=== PATIENT | male | born 1935 | race Caucasian/White ===

== ENCOUNTER 2017-09-19 10:14 | Inpatient (IN) | payer MEDICARE ==
[~2017-09-19] VITALS: Ht 182.9 cm; Wt 90.2 kg
[2017-09-19] MEDS ORDERED: IPRATROPIUM/ALBUTEROL SULFATE 3 ML SOLUTION IH ONE (10:43)
[2017-09-19] MEDS ORDERED: METHYLPREDNISOLONE SOD SUCC 40MG/ML 1ML ONE (10:45)
[2017-09-19 10:50] LABS: BASOPHILS % (AUTO) 0.6 % (0.0-5.0); HEMATOCRIT 46.7 % (42-54); MEAN CORPUSCULAR HEMOGLOBIN 31.8 pg (27.0-33.0); MEAN CORPUSCULAR HGB CONC 34.3 g/dL (32.0-36.0); MONOCYTES % (AUTO) 11.8 % (3.0-13.0); NEUTROPHILS % (AUTO) 68.6 % (40.0-77.0); PLATELET COUNT (AUTO) 144 K/uL (130-400); RED BLOOD CELL COUNT(AUTO) 5.02 MIL/uL (4.50-6.20); RED CELL DISTRIBUTION WIDTH 14.6 % (11.0-15.5); WHITE BLOOD COUNT (AUTO) 8.3 K/uL (4.8-10.8)
[2017-09-19 10:58] LABS: CREATININE 2.3 mg/dL (0.5-1.5)
[2017-09-19 11:02] LABS: MAGNESIUM 2.1 mg/dL (1.80-2.40)
[2017-09-19 11:14] LABS: ALBUMIN 3.8 g/dL (3.5-5.0); BILIRUBIN,TOTAL 0.7 mg/dL (0.2-1.0); CREATINE KINASE MB 3.8 ng/mL (0.5-3.6); TOTAL PROTEIN, SERUM 7.7 g/dL (6.0-8.3)
[2017-09-19 11:29] LABS: B-TYPE NATRIURETIC PEPTIDE 1900 pg/mL (0-100)
[2017-09-19 11:56] LABS: INR 2.35 (0.85-1.15); PARTIAL THROMBOPLASTIN TIME 39.7 SEC (26.3-35.5); PROTHROMBIN TIME 24.3 SEC (9.6-11.6)
[2017-09-19 14:02] LABS: CREATINE KINASE MB 2.9 ng/mL (0.5-3.6); CREATINE KINASE, TOTAL 192 U/L (21-232); MYOGLOBIN 279 ng/mL (10-92); TROPONIN I < 0.04 ng/mL (0.00-0.06)
[2017-09-19 15:12] VITALS: BP 155/62
[2017-09-19] MEDS ORDERED: TERB250T51 PO (15:43)
[2017-09-19] MEDS ORDERED: ASPI-1197 PO (15:43)
[2017-09-19] MEDS ORDERED: FURO40TA5 PO (15:43)
[2017-09-19] MEDS ORDERED: ISOS20TA7 PO (15:43)
[2017-09-19] MEDS ORDERED: WARF7.5T49 PO (15:43)
[2017-09-19] MEDS ORDERED: INSU100V12 SQ (15:43)
[2017-09-19] MEDS ORDERED: METO25TA6 PO (15:43)
[2017-09-19] MEDS ORDERED: SIMV40TA59 PO (15:43)
[2017-09-19] MEDS ORDERED: CHOL200074 PO (15:43)
[2017-09-19] MEDS ORDERED: FOLI0.8T22 PO (15:43)
[2017-09-19] MEDS: WARFARIN SODIUM 7.5 MG TAB PO SCH (16:00)
[2017-09-19] MEDS: FUROSEMIDE 20 MG TABLET PO SCH (17:29)
[2017-09-19] MEDS: METHYLPREDNISOLONE SOD SUCC 40MG/ML 1ML IVP SCH ×2 (17:29→22:25)
[2017-09-19 17:55] LABS: CREATINE KINASE, TOTAL 178 U/L (21-232); MYOGLOBIN 272 ng/mL (10-92); TROPONIN I < 0.04 ng/mL (0.00-0.06)
[2017-09-19 19:05] VITALS: BP 128/89
[2017-09-19] MEDS: IPRATROPIUM/ALBUTEROL SULFATE 3 ML SOLUTION IH PRN (19:40)
[2017-09-19] MEDS: ATORVASTATIN CALCIUM 20 MG TABLET PO SCH (22:19)
[2017-09-19] MEDS: METOPROLOL TARTRATE 25 MG TAB PO SCH (22:19)
[2017-09-19 23:20] VITALS: BP 135/58
[2017-09-20] MEDS: IPRATROPIUM/ALBUTEROL SULFATE 3 ML SOLUTION IH PRN ×3 (00:08→11:17)
[2017-09-20 03:30] VITALS: BP 158/83
[2017-09-20 03:59] LABS: INR 3.13 (0.85-1.15); PROTHROMBIN TIME 32.1 SEC (9.6-11.6)
[2017-09-20 04:00] LABS: CREATININE 2.3 mg/dL (0.5-1.5); MAGNESIUM 2.1 mg/dL (1.80-2.40); POTASSIUM 3.3 mmol/L (3.5-5.1)
[2017-09-20] MEDS: METHYLPREDNISOLONE SOD SUCC 40MG/ML 1ML IVP SCH ×4 (04:11→20:51)
[2017-09-20] MEDS: INSULIN HUMULIN R 100 UNIT/ML 3ML SQ SCH ×4 (06:20→20:54)
[2017-09-20 08:00] VITALS: BP 162/115
[2017-09-20] MEDS: FUROSEMIDE 20 MG TABLET PO SCH ×2 (09:11→17:36)
[2017-09-20] MEDS: METOPROLOL TARTRATE 25 MG TAB PO SCH ×2 (09:12→20:46)
[2017-09-20] MEDS: PANTOPRAZOLE SODIUM 40 MG TABLET.DR PO SCH (09:12)
[2017-09-20] MEDS: ISOSORBIDE MONO 30MG TAB SR PO SCH (09:12)
[2017-09-20] MEDS: ASPIRIN 81 MG EC TAB PO SCH (09:13)
[2017-09-20 12:00] VITALS: BP 161/85
[2017-09-20] MEDS: WARFARIN SODIUM 7.5 MG TAB PO SCH (14:42)
[2017-09-20 16:00] VITALS: BP 158/83
[2017-09-20 19:30] VITALS: BP 146/50
[2017-09-20] MEDS: ATORVASTATIN CALCIUM 20 MG TABLET PO SCH (20:46)
[2017-09-20 23:59] VITALS: BP 146/58
[2017-09-21] MEDS: IPRATROPIUM/ALBUTEROL SULFATE 3 ML SOLUTION IH PRN (03:46)
[2017-09-21] MEDS: METHYLPREDNISOLONE SOD SUCC 40MG/ML 1ML IVP SCH ×2 (03:56→08:14)
[2017-09-21 03:57] VITALS: BP 145/93
[2017-09-21 05:26] LABS: CREATININE 2.3 mg/dL (0.5-1.5); POTASSIUM 3.6 mmol/L (3.5-5.1)
[2017-09-21 05:35] LABS: INR 3.97 (0.85-1.15); PROTHROMBIN TIME 40.6 SEC (9.6-11.6)
[2017-09-21] MEDS: INSULIN HUMULIN R 100 UNIT/ML 3ML SQ SCH ×4 (06:36→21:12)
[2017-09-21] MEDS: IPRATROPIUM/ALBUTEROL SULFATE 3 ML SOLUTION IH SCH ×4 (06:41→23:29)
[2017-09-21 08:00] VITALS: BP 106/58
[2017-09-21] MEDS: METOPROLOL TARTRATE 25 MG TAB PO SCH ×2 (08:13→21:05)
[2017-09-21] MEDS: ASPIRIN 81 MG EC TAB PO SCH (08:13)
[2017-09-21] MEDS: FUROSEMIDE 20 MG TABLET PO SCH ×2 (08:13→17:29)
[2017-09-21] MEDS: PANTOPRAZOLE SODIUM 40 MG TABLET.DR PO SCH (08:13)
[2017-09-21] MEDS: ISOSORBIDE MONO 30MG TAB SR PO SCH (08:14)
[2017-09-21] MEDS ORDERED: MORPHINE SULFATE 2 MG/ML 1ML SYG IVP SCH (08:30)
[2017-09-21] MEDS ORDERED: NITROGLYCERIN 0.4 MG SL TAB SL ONE (08:31)
[2017-09-21] MEDS ORDERED: MORPHINE SULFATE 2 MG/ML 1ML SYG ONE (08:32)
[2017-09-21 09:44] LABS: CREATINE KINASE MB 4.4 ng/mL (0.5-3.6); CREATINE KINASE, TOTAL 125 U/L (21-232); MYOGLOBIN 320 ng/mL (10-92); TROPONIN I < 0.04 ng/mL (0.00-0.06)
[2017-09-21] MEDS ORDERED: LEVOFLOXACIN 500 MG/D5W 100 ML 100 ML ONE (11:30)
[2017-09-21 11:58] VITALS: BP 128/48
[2017-09-21 16:00] VITALS: BP 145/53
[2017-09-21] MEDS: WARFARIN SODIUM 7.5 MG TAB PO SCH (16:00)
[2017-09-21] MEDS ORDERED: BUDESONIDE 0.5 MG/2 ML INH IH ONE (18:26)
[2017-09-21] MEDS: BUDESONIDE 0.5 MG/2 ML INH IH SCH (18:54)
[2017-09-21 19:35] VITALS: BP 145/60
[2017-09-21] MEDS: ATORVASTATIN CALCIUM 20 MG TABLET PO SCH (21:05)
[2017-09-21 23:10] VITALS: BP 145/64
[2017-09-22 03:26] VITALS: BP 140/71
[2017-09-22] MEDS: IPRATROPIUM/ALBUTEROL SULFATE 3 ML SOLUTION IH SCH ×4 (04:47→23:28)
[2017-09-22] MEDS: BUDESONIDE 0.5 MG/2 ML INH IH SCH ×2 (04:48→20:05)
[2017-09-22] MEDS: INSULIN HUMULIN R 100 UNIT/ML 3ML SQ SCH ×4 (06:36→21:00)
[2017-09-22 06:39] LABS: CREATININE 2.4 mg/dL (0.5-1.5)
[2017-09-22 06:53] LABS: INR 4.38 (0.85-1.15); PROTHROMBIN TIME 44.7 SEC (9.6-11.6)
[2017-09-22 07:30] VITALS: BP 149/73
[2017-09-22] MEDS ORDERED: POTASSIUM CHLORIDE 20 MEQ ERTAB PO SCH (08:30)
[2017-09-22] MEDS: PANTOPRAZOLE SODIUM 40 MG TABLET.DR PO SCH (09:23)
[2017-09-22] MEDS: METOPROLOL TARTRATE 25 MG TAB PO SCH ×2 (09:24→21:00)
[2017-09-22] MEDS: ASPIRIN 81 MG EC TAB PO SCH (09:24)
[2017-09-22] MEDS: ISOSORBIDE MONO 30MG TAB SR PO SCH (09:24)
[2017-09-22] MEDS: FUROSEMIDE 20 MG TABLET PO SCH ×2 (09:25→16:29)
[2017-09-22] MEDS: WARFARIN SODIUM 7.5 MG TAB PO SCH (09:27)
[2017-09-22 11:00] VITALS: BP 96/49
[2017-09-22 16:00] VITALS: BP 131/51
[2017-09-22 20:00] VITALS: BP 154/98
[2017-09-22] MEDS: ATORVASTATIN CALCIUM 20 MG TABLET PO SCH (21:00)
[2017-09-22] MEDS ORDERED: ALPRAZOLAM 0.5 MG TABLET PO ONE (23:30)
[2017-09-22 23:39] VITALS: BP 138/73
[2017-09-23 04:21] VITALS: BP 113/63
[2017-09-23] MEDS: IPRATROPIUM/ALBUTEROL SULFATE 3 ML SOLUTION IH SCH ×2 (06:26→11:17)
[2017-09-23] MEDS: BUDESONIDE 0.5 MG/2 ML INH IH SCH (06:26)
[2017-09-23] MEDS: INSULIN HUMULIN R 100 UNIT/ML 3ML SQ SCH ×2 (07:30→12:40)
[2017-09-23 08:00] VITALS: BP 127/70
[2017-09-23 08:11] LABS: INR 2.62 (0.85-1.15)
[2017-09-23] MEDS ORDERED: LEVOFLOXACIN 500 MG/D5W 100 ML 100 ML IV SCH (09:00)
[2017-09-23] MEDS: ISOSORBIDE MONO 30MG TAB SR PO SCH (10:20)
[2017-09-23] MEDS: METOPROLOL TARTRATE 25 MG TAB PO SCH (10:20)
[2017-09-23] MEDS: PANTOPRAZOLE SODIUM 40 MG TABLET.DR PO SCH (10:21)
[2017-09-23] MEDS: ASPIRIN 81 MG EC TAB PO SCH (10:21)
[2017-09-23] MEDS: FUROSEMIDE 20 MG TABLET PO SCH (10:21)
[2017-09-23 11:00] VITALS: BP 128/67
== END 2017-09-23 16:50 | disposition home or self-care (01) | DRG 189 ==
LOC: EDH 10:14 → EDHIP 11:27 → 3AH 14:21
PROVIDERS: ADMIT Internal Medicine; ATTEND Internal Medicine
DX: J96.21 Acute and chronic respiratory failure with hypoxia (principal); E11.22 Type 2 diabetes mellitus with diabetic chronic kidney disease; E11.51 Type 2 diabetes mellitus with diabetic peripheral angiopathy without gangrene; J44.1 Chronic obstructive pulmonary disease with (acute) exacerbation; I13.0 Hypertensive heart and chronic kidney disease with heart failure and stage 1 through stage 4 chronic kidney disease, or unspecified chronic kidney disease; I50.42 Chronic combined systolic (congestive) and diastolic (congestive) heart failure; J84.10 Pulmonary fibrosis, unspecified; I25.5 Ischemic cardiomyopathy; I25.10 Atherosclerotic heart disease of native coronary artery without angina pectoris; E11.65 Type 2 diabetes mellitus with hyperglycemia; I49.3 Ventricular premature depolarization; N18.9 Chronic kidney disease, unspecified; N40.0 Benign prostatic hyperplasia without lower urinary tract symptoms; Z79.01 Long term (current) use of anticoagulants; Z80.9 Family history of malignant neoplasm, unspecified; I25.2 Old myocardial infarction; Z82.3 Family history of stroke; Z82.49 Family history of ischemic heart disease and other diseases of the circulatory system; Z83.3 Family history of diabetes mellitus; Z85.828 Personal history of other malignant neoplasm of skin; Z86.79 Personal history of other diseases of the circulatory system; Z87.891 Personal history of nicotine dependence; Z88.1 Allergy status to other antibiotic agents; Z28.21 Immunization not carried out because of patient refusal
CPT/HCPCS: 36415; 71045; 80048; 80053; 82550; 82553; 82948; 83605; 83735; 83874; 83880; 84484; 85025; 85610; 85730; 87804; 93005; 93306; 94640; 94664; J1815; J1956; J2920

== ENCOUNTER 2017-11-11 15:31 | Inpatient (IN) | payer MEDICARE ==
[~2017-11-11] VITALS: Ht 193 cm; Wt 91.5 kg
[~2017-11-11 15:31] MED LIST: ASPI-1197 PO; CHOL200074 PO; FOLI0.8T22 PO; FURO40TA5 PO; INSU100V12 SQ; ISOS20TA7 PO; METO25TA6 PO; SIMV40TA59 PO; TERB250T51 PO; WARF7.5T49 PO
[2017-11-11] MEDS ORDERED: ACETAMINOPHEN 325 MG TAB PO PRN (16:15)
[2017-11-11 16:27] VITALS: BP 150/80
[2017-11-11] MEDS ORDERED: SODIUM CHLORIDE 0.9% 10 ML VIAL IVP PRN (16:30)
[2017-11-11] MEDS ORDERED: CLONIDINE HCL 0.1 MG TABLET PO PRN (16:30)
[2017-11-11 16:50] LABS: HEMATOCRIT 39.7 % (42-54); MEAN CORPUSCULAR HEMOGLOBIN 32.3 pg (27.0-33.0); MEAN CORPUSCULAR HGB CONC 34.1 g/dL (32.0-36.0); MEAN CORPUSCULAR VOLUME 94.6 fL (79-99); PLATELET COUNT (AUTO) 214 K/uL (130-400); RED CELL DISTRIBUTION WIDTH 16.9 % (11.0-15.5); WHITE BLOOD COUNT (AUTO) 8.6 K/uL (4.8-10.8)
[2017-11-11 17:08] LABS: ALBUMIN 3.7 g/dL (3.5-5.0); BILIRUBIN,TOTAL 0.4 mg/dL (0.2-1.0); POTASSIUM 3.6 mmol/L (3.5-5.1); THYROID STIMULATING HORMONE 1.98 uIU/mL (0.36-3.74); TOTAL PROTEIN, SERUM 7.5 g/dL (6.0-8.3)
[2017-11-11] MEDS ORDERED: DEXTROSE 50%-WATER 50 ML DISP.SYRIN IV PRN (18:15)
[2017-11-11] MEDS ORDERED: GLUCAGON 1MG KIT 1 MG ML IM PRN (18:15)
[2017-11-11 18:55] LABS: INR 3.01 (0.85-1.15); PARTIAL THROMBOPLASTIN TIME 38.5 SEC (26.3-35.5); PROTHROMBIN TIME 30.9 SEC (9.6-11.6)
[2017-11-11] MEDS: SODIUM CHLORIDE 0.9% 1000ML 1,000 ML IV SCH (19:55)
[2017-11-11 20:28] VITALS: BP 156/65
[2017-11-11] MEDS: INSULIN HUMULIN R 100 UNIT/ML 3ML SQ SCH (21:00)
[2017-11-11 23:25] VITALS: BP 142/67
[2017-11-12 03:23] VITALS: BP 139/75
[2017-11-12 05:22] LABS: CARBON DIOXIDE 26 mmol/L (21-32); CHLORIDE 107 mmol/L (101-111); CREATINE KINASE MB 1.3 ng/mL (0.5-3.6); CREATINE KINASE, TOTAL 47 U/L (21-232); CREATININE 1.8 mg/dL (0.5-1.5); GLOMERULAR FILTR. RATE CALC 38 mL/min (>60); GLUCOSE,RANDOM 113 mg/dL (70-105); MYOGLOBIN 108 ng/mL (10-92); POTASSIUM 3.6 mmol/L (3.5-5.1); SODIUM SERUM 142 mmol/L (136-145); TROPONIN I < 0.04 ng/mL (0.00-0.06); UREA NITROGEN, BLOOD 31 mg/dL (7-18)
[2017-11-12] MEDS: INSULIN HUMULIN R 100 UNIT/ML 3ML SQ SCH ×4 (06:09→21:00)
[2017-11-12] MEDS ORDERED: FLUT1AER IH (07:18)
[2017-11-12 07:46] LABS: INR 2.89 (0.85-1.15); PARTIAL THROMBOPLASTIN TIME 38.6 SEC (26.3-35.5); PROTHROMBIN TIME 29.7 SEC (9.6-11.6)
[2017-11-12 08:22] VITALS: BP 173/76
[2017-11-12] MEDS: CHOLECALCIFEROL 1000 UNIT PO SCH (09:00)
[2017-11-12] MEDS: METOPROLOL TARTRATE 25 MG TAB PO SCH ×2 (09:52→21:13)
[2017-11-12] MEDS: ASPIRIN 81MG TAB.CHEW PO SCH (09:52)
[2017-11-12] MEDS: FUROSEMIDE 40 MG TABLET PO SCH (09:52)
[2017-11-12] MEDS: VITAMIN B COMPLEX 1 CAPSULE PO SCH (09:52)
[2017-11-12] MEDS: ISOSORBIDE MONONITRATE 20 MG TABLET PO SCH (09:53)
[2017-11-12] MEDS: SODIUM CHLORIDE 0.9% 1000ML 1,000 ML IV SCH ×2 (09:53→21:25)
[2017-11-12 11:29] VITALS: BP 119/71
[2017-11-12] MEDS: IPRATROPIUM/ALBUTEROL SULFATE 3 ML SOLUTION IH SCH ×3 (11:40→23:49)
[2017-11-12 16:16] VITALS: BP 152/76
[2017-11-12 16:16] LABS: INR 2.23 (0.85-1.15); PROTHROMBIN TIME 23.1 SEC (9.6-11.6)
[2017-11-12] MEDS: BUDESONIDE 0.5 MG/2 ML INH IH SCH (19:16)
[2017-11-12 19:39] VITALS: BP 148/68
[2017-11-12] MEDS: ATORVASTATIN CALCIUM 20 MG TABLET PO SCH (21:13)
[2017-11-12] MEDS: INSULIN GLARGINE 100 UNITS/ML 10 ML VIAL SQ SCH (21:19)
[2017-11-12 23:14] VITALS: BP 136/82
[2017-11-13] VITALS (25 sets, daily range): BP systolic 111–173; BP diastolic 49–119
[2017-11-13] MEDS: INSULIN HUMULIN R 100 UNIT/ML 3ML SQ SCH ×4 (06:07→20:49)
[2017-11-13] MEDS: IPRATROPIUM/ALBUTEROL SULFATE 3 ML SOLUTION IH SCH ×2 (06:09→11:14)
[2017-11-13] MEDS: BUDESONIDE 0.5 MG/2 ML INH IH SCH ×2 (06:10→19:00)
[2017-11-13 06:12] LABS: CREATININE 1.7 mg/dL (0.5-1.5)
[2017-11-13 06:15] LABS: INR 1.56 (0.85-1.15); PROTHROMBIN TIME 16.2 SEC (9.6-11.6)
[2017-11-13] MEDS ORDERED: FUROSEMIDE 10 MG/ML 4ML VIAL ONE (07:07)
[2017-11-13] MEDS ORDERED: NITROGLYCERIN 0.4 MG SL TAB SL ONE (07:14)
[2017-11-13] MEDS ORDERED: FUROSEMIDE 10 MG/ML 4ML VIAL IV SCH ×2 (07:15)
[2017-11-13] MEDS ORDERED: NITROGLYCERIN 0.4 MG SL TAB SL PRN (07:15)
[2017-11-13] MEDS: VITAMIN B COMPLEX 1 CAPSULE PO SCH (07:37)
[2017-11-13] MEDS: METOPROLOL TARTRATE 25 MG TAB PO SCH ×2 (07:37→20:36)
[2017-11-13] MEDS: SODIUM CHLORIDE 0.9% 1000ML 1,000 ML IV SCH (07:37)
[2017-11-13] MEDS: ASPIRIN 81MG TAB.CHEW PO SCH (07:37)
[2017-11-13] MEDS: ISOSORBIDE MONONITRATE 20 MG TABLET PO SCH (07:37)
[2017-11-13] MEDS: CHOLECALCIFEROL 1000 UNIT PO SCH (07:37)
[2017-11-13] MEDS: FUROSEMIDE 40 MG TABLET PO SCH (07:37)
[2017-11-13] MEDS ORDERED: METOPROLOL TARTRATE 1 MG/ML 5ML VIAL IV ONE ×3 (08:13→08:29)
[2017-11-13] MEDS ORDERED: METOPROLOL TARTRATE 1 MG/ML 5ML VIAL IV SCH (08:15)
[2017-11-13] MEDS ORDERED: METOPROLOL TARTRATE 1 MG/ML 5ML VIAL IV PRN (08:30)
[2017-11-13] MEDS ORDERED: AMIODARONE HCL 900 MG in DEXTROSE 5%-WATER 500 ML IV SCH ×2 (08:45→09:00)
[2017-11-13] MEDS ORDERED: AMIODARONE HCL 300 MG in DEXTROSE 5%-WATER 100 ML IV ONE (08:45)
[2017-11-13] MEDS ORDERED: AMIODARONE HCL 300 MG in DEXTROSE 5%-WATER 100 ML IV SCH (09:00)
[2017-11-13] MEDS ORDERED: IPRATROPIUM 0.5 MG/2.5 ML INH IH PRN (13:15)
[2017-11-13] MEDS ORDERED: POTASSIUM CHLORIDE 20MEQ/100ML 100 ML IV PRN (20:15)
[2017-11-13] MEDS ORDERED: LIDOCAINE HCL-MPF 1% 2ML VIAL IVP PRN (20:15)
[2017-11-13] MEDS ORDERED: POTASSIUM CHLORIDE 10% ELIXIR 20 MEQ/15 ML UDCUP PO PRN (20:15)
[2017-11-13] MEDS: ATORVASTATIN CALCIUM 20 MG TABLET PO SCH (20:36)
[2017-11-13] MEDS: FUROSEMIDE 10 MG/ML 4ML VIAL IV SCH (20:37)
[2017-11-13] MEDS: INSULIN GLARGINE 100 UNITS/ML 10 ML VIAL SQ SCH (20:45)
[2017-11-14] VITALS (23 sets, daily range): BP systolic 89–167; BP diastolic 44–88
[2017-11-14 03:47] LABS: BASOPHILS % (AUTO) 0.5 % (0.0-5.0); EOSINOPHILS % (AUTO) 0.6 % (0.0-8.0); HEMATOCRIT 38.6 % (42-54); LYMPHOCYTES % (AUTO) 15.5 % (21.0-51.0); MEAN CORPUSCULAR HEMOGLOBIN 31.5 pg (27.0-33.0); MEAN CORPUSCULAR HGB CONC 33.5 g/dL (32.0-36.0); MEAN CORPUSCULAR VOLUME 94.1 fL (79-99); MONOCYTES % (AUTO) 14.8 % (3.0-13.0); NEUTROPHILS % (AUTO) 68.6 % (40.0-77.0); PLATELET COUNT (AUTO) 160 K/uL (130-400); RED BLOOD CELL COUNT(AUTO) 4.11 MIL/uL (4.50-6.20); RED CELL DISTRIBUTION WIDTH 16.9 % (11.0-15.5); WHITE BLOOD COUNT (AUTO) 10.5 K/uL (4.8-10.8)
[2017-11-14 03:56] LABS: CREATININE 1.9 mg/dL (0.5-1.5); POTASSIUM 3.7 mmol/L (3.5-5.1)
[2017-11-14 04:01] LABS: INR 1.46 (0.85-1.15); PARTIAL THROMBOPLASTIN TIME 32.7 SEC (26.3-35.5); PROTHROMBIN TIME 15.2 SEC (9.6-11.6)
[2017-11-14] MEDS: BUDESONIDE 0.5 MG/2 ML INH IH SCH ×2 (06:19→19:18)
[2017-11-14] MEDS: INSULIN HUMULIN R 100 UNIT/ML 3ML SQ SCH ×4 (06:32→20:23)
[2017-11-14] MEDS: ASPIRIN 81MG TAB.CHEW PO SCH (08:44)
[2017-11-14] MEDS: ISOSORBIDE MONONITRATE 20 MG TABLET PO SCH (08:45)
[2017-11-14] MEDS: VITAMIN B COMPLEX 1 CAPSULE PO SCH (08:45)
[2017-11-14] MEDS: METOPROLOL TARTRATE 50 MG TAB PO SCH ×2 (08:46→20:23)
[2017-11-14] MEDS: FUROSEMIDE 10 MG/ML 4ML VIAL IV SCH (08:46)
[2017-11-14] MEDS: CHOLECALCIFEROL 1000 UNIT PO SCH (08:46)
[2017-11-14] MEDS: AMIODARONE HCL 200 MG TABLET PO SCH (11:20)
[2017-11-14] MEDS: SODIUM CHLORIDE 0.9% 1000ML 1,000 ML IV SCH ×2 (13:22)
[2017-11-14] MEDS ORDERED: ISOVUE-370 50ML VIAL IV ONE (16:20)
[2017-11-14] MEDS ORDERED: LIDOCAINE HCL 1% 20 ML VIAL ONE (16:20)
[2017-11-14] MEDS ORDERED: IOPAMIDOL-370 100 ML VIAL IV ONE (16:20)
[2017-11-14] MEDS ORDERED: HEPARIN SODIUM 1000UNIT/ML 10ML VIAL ONE (16:20)
[2017-11-14] MEDS ORDERED: SODIUM BICARB 50MEQ 50ML VIAL ONE (16:20)
[2017-11-14] MEDS ORDERED: NITROGLYCERIN 5 MG/ML 10 ML VIAL IV ONE (16:20)
[2017-11-14] MEDS: SODIUM CHLORIDE 0.9% 10 ML VIAL IV SCH (18:15)
[2017-11-14] MEDS: ATORVASTATIN CALCIUM 20 MG TABLET PO SCH (20:23)
[2017-11-14] MEDS: INSULIN GLARGINE 100 UNITS/ML 10 ML VIAL SQ SCH (20:29)
[2017-11-15] VITALS (16 sets, daily range): BP systolic 85–150; BP diastolic 32–92
[2017-11-15] MEDS: SODIUM CHLORIDE 0.9% 10 ML VIAL IV SCH ×3 (02:03→16:35)
[2017-11-15 03:52] LABS: HEMATOCRIT 38.9 % (42-54); MEAN CORPUSCULAR HEMOGLOBIN 31.7 pg (27.0-33.0); MEAN CORPUSCULAR HGB CONC 33.5 g/dL (32.0-36.0); MEAN CORPUSCULAR VOLUME 94.7 fL (79-99); PLATELET COUNT (AUTO) 155 K/uL (130-400); RED BLOOD CELL COUNT(AUTO) 4.11 MIL/uL (4.50-6.20); RED CELL DISTRIBUTION WIDTH 16.8 % (11.0-15.5); WHITE BLOOD COUNT (AUTO) 9.9 K/uL (4.8-10.8)
[2017-11-15 04:21] LABS: CREATININE 1.9 mg/dL (0.5-1.5); POTASSIUM 3.9 mmol/L (3.5-5.1)
[2017-11-15] MEDS: INSULIN HUMULIN R 100 UNIT/ML 3ML SQ SCH ×4 (06:13→22:37)
[2017-11-15] MEDS: BUDESONIDE 0.5 MG/2 ML INH IH SCH ×2 (06:46→19:19)
[2017-11-15] MEDS: AMIODARONE HCL 200 MG TABLET PO SCH (08:24)
[2017-11-15] MEDS: ASPIRIN 81MG TAB.CHEW PO SCH (08:24)
[2017-11-15] MEDS: VITAMIN B COMPLEX 1 CAPSULE PO SCH (08:24)
[2017-11-15] MEDS: ISOSORBIDE MONONITRATE 20 MG TABLET PO SCH (08:24)
[2017-11-15] MEDS: METOPROLOL TARTRATE 50 MG TAB PO SCH ×2 (08:24→21:20)
[2017-11-15] MEDS: CHOLECALCIFEROL 1000 UNIT PO SCH (09:00)
[2017-11-15] MEDS: ATORVASTATIN CALCIUM 20 MG TABLET PO SCH (21:20)
[2017-11-15] MEDS: INSULIN GLARGINE 100 UNITS/ML 10 ML VIAL SQ SCH (21:21)
[2017-11-16] MEDS: SODIUM CHLORIDE 0.9% 10 ML VIAL IV SCH ×3 (02:15→16:49)
[2017-11-16 04:06] VITALS: BP 144/62
[2017-11-16 05:24] LABS: HEMATOCRIT 33.2 % (42-54); MEAN CORPUSCULAR HEMOGLOBIN 32.9 pg (27.0-33.0); MEAN CORPUSCULAR HGB CONC 34.7 g/dL (32.0-36.0); MEAN CORPUSCULAR VOLUME 94.8 fL (79-99); PLATELET COUNT (AUTO) 155 K/uL (130-400); RED CELL DISTRIBUTION WIDTH 16.5 % (11.0-15.5)
[2017-11-16 05:33] LABS: ALBUMIN 2.7 g/dL (3.5-5.0); BILIRUBIN,TOTAL 0.7 mg/dL (0.2-1.0); TOTAL PROTEIN, SERUM 5.9 g/dL (6.0-8.3)
[2017-11-16] MEDS: POTASSIUM CHLORIDE 20 MEQ ERTAB PO PRN ×2 (05:54→07:03)
[2017-11-16 06:00] LABS: B-TYPE NATRIURETIC PEPTIDE 1720 pg/mL (0-100)
[2017-11-16] MEDS: INSULIN HUMULIN R 100 UNIT/ML 3ML SQ SCH ×4 (06:06→21:00)
[2017-11-16] MEDS: BUDESONIDE 0.5 MG/2 ML INH IH SCH ×2 (06:12→20:00)
[2017-11-16 08:00] VITALS: BP 155/84
[2017-11-16] MEDS: METOPROLOL TARTRATE 50 MG TAB PO SCH ×2 (08:58→21:57)
[2017-11-16] MEDS: VITAMIN B COMPLEX 1 CAPSULE PO SCH (08:58)
[2017-11-16] MEDS: ISOSORBIDE MONONITRATE 20 MG TABLET PO SCH (08:58)
[2017-11-16] MEDS: AMIODARONE HCL 200 MG TABLET PO SCH (08:58)
[2017-11-16] MEDS: ASPIRIN 81MG TAB.CHEW PO SCH (08:58)
[2017-11-16] MEDS: CHOLECALCIFEROL 1000 UNIT PO SCH (08:59)
[2017-11-16] MEDS ORDERED: ENOXAPARIN SODIUM 40 MG/0.4 ML SYRINGE SQ SCH (09:00)
[2017-11-16 09:21] LABS: ABG BASE EXCESS -1.3 mmol/L (-2.0-3.0); ABG HCO3 21.7 mmol/L (21.0-28.0); ABG OXYGEN SATURATION 92.2 % (95.0-99.0); ABG PCO2 32 mmHg (35-48)
[2017-11-16 11:55] VITALS: BP 117/67
[2017-11-16 16:27] VITALS: BP 115/56
[2017-11-16] MEDS: IPRATROPIUM 0.5 MG/2.5 ML INH IH SCH (19:25)
[2017-11-16 19:53] VITALS: BP 129/67
[2017-11-16] MEDS: INSULIN GLARGINE 100 UNITS/ML 10 ML VIAL SQ SCH (21:55)
[2017-11-16] MEDS: ATORVASTATIN CALCIUM 20 MG TABLET PO SCH (21:56)
[2017-11-16 23:34] VITALS: BP 138/69
[2017-11-17] MEDS: IPRATROPIUM 0.5 MG/2.5 ML INH IH SCH ×4 (00:45→18:43)
[2017-11-17] MEDS: SODIUM CHLORIDE 0.9% 10 ML VIAL IV SCH ×3 (02:15→16:47)
[2017-11-17 04:00] VITALS: BP 117/56
[2017-11-17 04:52] LABS: HEMATOCRIT 35.7 % (42-54); MEAN CORPUSCULAR HEMOGLOBIN 31.8 pg (27.0-33.0); MEAN CORPUSCULAR HGB CONC 33.5 g/dL (32.0-36.0); MEAN CORPUSCULAR VOLUME 94.9 fL (79-99); PLATELET COUNT (AUTO) 159 K/uL (130-400); RED BLOOD CELL COUNT(AUTO) 3.76 MIL/uL (4.50-6.20); RED CELL DISTRIBUTION WIDTH 16.5 % (11.0-15.5); WHITE BLOOD COUNT (AUTO) 7.8 K/uL (4.8-10.8)
[2017-11-17 05:01] LABS: CREATININE 1.8 mg/dL (0.5-1.5); MAGNESIUM 2.1 mg/dL (1.80-2.40); POTASSIUM 3.7 mmol/L (3.5-5.1)
[2017-11-17] MEDS: INSULIN HUMULIN R 100 UNIT/ML 3ML SQ SCH ×4 (06:19→20:55)
[2017-11-17] MEDS: BUDESONIDE 0.5 MG/2 ML INH IH SCH ×2 (06:25→19:04)
[2017-11-17] MEDS: POTASSIUM CHLORIDE 20 MEQ ERTAB PO PRN (06:55)
[2017-11-17 07:41] VITALS: BP 124/96
[2017-11-17] MEDS: ASPIRIN 81MG TAB.CHEW PO SCH (08:27)
[2017-11-17] MEDS: METOPROLOL TARTRATE 50 MG TAB PO SCH ×2 (08:27→19:55)
[2017-11-17] MEDS: ISOSORBIDE MONONITRATE 20 MG TABLET PO SCH (08:27)
[2017-11-17] MEDS: VITAMIN B COMPLEX 1 CAPSULE PO SCH (08:27)
[2017-11-17] MEDS: AMIODARONE HCL 200 MG TABLET PO SCH (08:27)
[2017-11-17] MEDS: CHOLECALCIFEROL 1000 UNIT PO SCH (08:28)
[2017-11-17] MEDS: ENOXAPARIN SODIUM 30 MG/0.3 ML SQ SCH (08:28)
[2017-11-17 11:53] VITALS: BP 104/55
[2017-11-17 16:46] VITALS: BP 115/57
[2017-11-17 19:43] VITALS: BP 126/57
[2017-11-17] MEDS: ATORVASTATIN CALCIUM 20 MG TABLET PO SCH (19:55)
[2017-11-17] MEDS: INSULIN GLARGINE 100 UNITS/ML 10 ML VIAL SQ SCH (20:55)
[2017-11-17 23:52] VITALS: BP 127/69
[2017-11-18] MEDS: IPRATROPIUM 0.5 MG/2.5 ML INH IH SCH ×5 (00:40→23:36)
[2017-11-18] MEDS: SODIUM CHLORIDE 0.9% 10 ML VIAL IV SCH ×2 (02:31→09:30)
[2017-11-18 04:10] VITALS: BP 125/58
[2017-11-18 04:45] LABS: CREATININE 1.8 mg/dL (0.5-1.5); POTASSIUM 3.7 mmol/L (3.5-5.1)
[2017-11-18] MEDS: INSULIN HUMULIN R 100 UNIT/ML 3ML SQ SCH ×4 (05:49→20:52)
[2017-11-18] MEDS: BUDESONIDE 0.5 MG/2 ML INH IH SCH ×2 (06:18→19:16)
[2017-11-18] MEDS: METOPROLOL TARTRATE 50 MG TAB PO SCH ×2 (07:28→20:58)
[2017-11-18] MEDS: AMIODARONE HCL 200 MG TABLET PO SCH (07:28)
[2017-11-18] MEDS: ENOXAPARIN SODIUM 30 MG/0.3 ML SQ SCH (07:29)
[2017-11-18] MEDS: ISOSORBIDE MONONITRATE 20 MG TABLET PO SCH (07:29)
[2017-11-18] MEDS: ASPIRIN 81MG TAB.CHEW PO SCH (07:29)
[2017-11-18] MEDS: CHOLECALCIFEROL 1000 UNIT PO SCH (07:29)
[2017-11-18] MEDS: VITAMIN B COMPLEX 1 CAPSULE PO SCH (07:29)
[2017-11-18 07:55] VITALS: BP 150/73
[2017-11-18 11:49] VITALS: BP 137/64
[2017-11-18 16:47] VITALS: BP 137/56
[2017-11-18 20:17] VITALS: BP 151/73
[2017-11-18] MEDS: ATORVASTATIN CALCIUM 20 MG TABLET PO SCH (20:58)
[2017-11-18] MEDS: INSULIN GLARGINE 100 UNITS/ML 10 ML VIAL SQ SCH (20:59)
[2017-11-19 01:22] VITALS: BP 170/74
[2017-11-19 04:02] VITALS: BP 146/73
[2017-11-19] MEDS: BUDESONIDE 0.5 MG/2 ML INH IH SCH (06:12)
[2017-11-19] MEDS: IPRATROPIUM 0.5 MG/2.5 ML INH IH SCH ×2 (06:12→11:10)
[2017-11-19] MEDS: INSULIN HUMULIN R 100 UNIT/ML 3ML SQ SCH ×3 (06:28→16:23)
[2017-11-19] MEDS: ENOXAPARIN SODIUM 30 MG/0.3 ML SQ SCH (07:24)
[2017-11-19] MEDS: ISOSORBIDE MONONITRATE 20 MG TABLET PO SCH (07:24)
[2017-11-19] MEDS: METOPROLOL TARTRATE 50 MG TAB PO SCH (07:24)
[2017-11-19] MEDS: VITAMIN B COMPLEX 1 CAPSULE PO SCH (07:24)
[2017-11-19] MEDS: ASPIRIN 81MG TAB.CHEW PO SCH (07:24)
[2017-11-19] MEDS: AMIODARONE HCL 200 MG TABLET PO SCH (07:24)
[2017-11-19] MEDS: CHOLECALCIFEROL 1000 UNIT PO SCH (07:25)
[2017-11-19 08:02] VITALS: BP 147/70
[2017-11-19 11:41] VITALS: BP 128/67
[2017-11-19 16:33] VITALS: BP 147/79
== END 2017-11-19 18:38 | disposition short-term general hospital (02) | DRG 286 ==
LOC: EDH 15:31 → INTOOBSV 15:32 → OBSVTOIN 15:32 → EDHIP 15:32 → UNDOADMOB 15:48 → EDHIP 15:48 → 2AH 16:08 → 2CH 11-13 08:02 → 2BH 11-13 17:30 → 2DH 11-15 13:35
PROVIDERS: ADMIT Internal Medicine; ATTEND Internal Medicine
PROC: 4A023N8 Measurement of Cardiac Sampling and Pressure, Bilateral, Percutaneous Approach (ICD-10-PCS; principal; 2017-11-14)
PROC: B2111ZZ Fluoroscopy of Multiple Coronary Arteries using Low Osmolar Contrast (ICD-10-PCS; 2017-11-14)
PROC: 30233L1 Transfusion of Nonautologous Fresh Plasma into Peripheral Vein, Percutaneous Approach (ICD-10-PCS; 2017-11-14)
PROC: 30233K1 Transfusion of Nonautologous Frozen Plasma into Peripheral Vein, Percutaneous Approach (ICD-10-PCS; 2017-11-14)
PROC: 5A09357 Assistance with Respiratory Ventilation, Less than 24 Consecutive Hours, Continuous Positive Airway Pressure (ICD-10-PCS; 2017-11-14)
DX: I25.110 Atherosclerotic heart disease of native coronary artery with unstable angina pectoris (principal); I50.43 Acute on chronic combined systolic (congestive) and diastolic (congestive) heart failure; J96.01 Acute respiratory failure with hypoxia; N18.4 Chronic kidney disease, stage 4 (severe); I82.402 Acute embolism and thrombosis of unspecified deep veins of left lower extremity; N17.9 Acute kidney failure, unspecified; E11.22 Type 2 diabetes mellitus with diabetic chronic kidney disease; I27.20 Pulmonary hypertension, unspecified; I13.0 Hypertensive heart and chronic kidney disease with heart failure and stage 1 through stage 4 chronic kidney disease, or unspecified chronic kidney disease; E11.51 Type 2 diabetes mellitus with diabetic peripheral angiopathy without gangrene; I35.0 Nonrheumatic aortic (valve) stenosis; E78.5 Hyperlipidemia, unspecified; N40.0 Benign prostatic hyperplasia without lower urinary tract symptoms; I48.0 Paroxysmal atrial fibrillation; I25.5 Ischemic cardiomyopathy; I48.2 Chronic atrial fibrillation; I49.3 Ventricular premature depolarization; I71.4 Abdominal aortic aneurysm, without rupture; J44.9 Chronic obstructive pulmonary disease, unspecified; R79.1 Abnormal coagulation profile; I25.2 Old myocardial infarction; Z95.820 Peripheral vascular angioplasty status with implants and grafts; Z87.891 Personal history of nicotine dependence; Z95.1 Presence of aortocoronary bypass graft; Z86.79 Personal history of other diseases of the circulatory system; Z86.718 Personal history of other venous thrombosis and embolism; Z85.46 Personal history of malignant neoplasm of prostate; Z79.01 Long term (current) use of anticoagulants; Z83.3 Family history of diabetes mellitus; Z82.3 Family history of stroke
CPT/HCPCS: 36415; 36600; 71045; 71250; 80048; 80053; 80061; 82550; 82553; 82803; 82948; 83735; 83874; 83880; 84132; 84439; 84443; 84481; 84484; 85025; 85027; 85610; 85730; 86850; 86900; 86901; 86927; 93005; 93306; 93460; 94640; 94660; 94664; A4344; A4357; C1769; C1893; C1894; J0282; J1644; J1650; J1815; J1940; J3490; J7030; J7060; P9017; Q9967

== ENCOUNTER 2020-05-11 13:32 | Emergency (ER) | payer MEDICARE ==
[~2020-05-11 13:32] MED LIST changes: +FLUT1AER IH; -TERB250T51 PO
[2020-05-11 14:43] LABS: BASOPHILS % (AUTO) 0.3 % (0.0-5.0); EOSINOPHILS % (AUTO) 0.2 % (0.0-8.0); HEMATOCRIT 42.4 % (42-54); LYMPHOCYTES % (AUTO) 14.8 % (21.0-51.0); MEAN CORPUSCULAR HEMOGLOBIN 31.8 pg (27.0-33.0); MEAN CORPUSCULAR HGB CONC 32.1 g/dL (32.0-36.0); MEAN CORPUSCULAR VOLUME 99.1 fL (79-99); MONOCYTES % (AUTO) 9.9 % (3.0-13.0); NEUTROPHILS % (AUTO) 74.4 % (40.0-77.0); PLATELET COUNT (AUTO) 165 K/uL (130-400); RED BLOOD CELL COUNT(AUTO) 4.28 MIL/uL (4.50-6.20); RED CELL DISTRIBUTION WIDTH 15.5 % (11.0-15.5); WHITE BLOOD COUNT (AUTO) 11.7 K/uL (4.8-10.8)
[2020-05-11 15:07] LABS: ALBUMIN 3.4 g/dL (3.5-5.0); BILIRUBIN,TOTAL 0.6 mg/dL (0.2-1.0); CREATININE 2.4 mg/dL (0.5-1.5); POTASSIUM 4.3 mmol/L (3.5-5.1); TOTAL PROTEIN, SERUM 7.1 g/dL (6.0-8.3)
[2020-05-11 15:14] LABS: B-TYPE NATRIURETIC PEPTIDE 3470 pg/mL (0-100)
== END 2020-05-11 16:25 | disposition home or self-care (01) ==
LOC: EDH 13:32
DX: E11.65 Type 2 diabetes mellitus with hyperglycemia (principal); R53.1 Weakness; I10 Essential (primary) hypertension; J44.9 Chronic obstructive pulmonary disease, unspecified; I25.10 Atherosclerotic heart disease of native coronary artery without angina pectoris; Z88.6 Allergy status to analgesic agent; Z95.1 Presence of aortocoronary bypass graft; Z87.891 Personal history of nicotine dependence
CPT/HCPCS: 36415; 71045; 80053; 83880; 84484; 85025; 93005

== ENCOUNTER 2020-06-11 18:12 | Inpatient (IN) | payer MEDICARE ==
[~2020-06-11] VITALS: Ht 193 cm; Wt 85.2 kg
[2020-06-11] MEDS ORDERED: ASPIRIN 325 MG TABLET ONE (18:34)
[2020-06-11] MEDS ORDERED: NITROGLYCERIN 0.4 MG SL TAB SL ONE (18:48)
[2020-06-11 19:00] LABS: BASOPHILS % (AUTO) 0.6 % (0.0-5.0); EOSINOPHILS % (AUTO) 0.8 % (0.0-8.0); HEMATOCRIT 40.1 % (42-54); LYMPHOCYTES % (AUTO) 16.2 % (21.0-51.0); MEAN CORPUSCULAR HEMOGLOBIN 31.9 pg (27.0-33.0); MEAN CORPUSCULAR HGB CONC 32.2 g/dL (32.0-36.0); MONOCYTES % (AUTO) 13.1 % (3.0-13.0); NEUTROPHILS % (AUTO) 68.8 % (40.0-77.0); PLATELET COUNT (AUTO) 139 K/uL (130-400); RED BLOOD CELL COUNT(AUTO) 4.05 MIL/uL (4.50-6.20); RED CELL DISTRIBUTION WIDTH 14.8 % (11.0-15.5); WHITE BLOOD COUNT (AUTO) 8.3 K/uL (4.8-10.8)
[2020-06-11 19:09] LABS: CREATININE 2.4 mg/dL (0.5-1.5); POTASSIUM 4.3 mmol/L (3.5-5.1)
[2020-06-11 19:14] LABS: ALBUMIN 3.1 g/dL (3.5-5.0); BILIRUBIN,TOTAL 0.4 mg/dL (0.2-1.0); TOTAL PROTEIN, SERUM 6.6 g/dL (6.0-8.3)
[2020-06-11 19:32] LABS: INR 1.12 (0.85-1.15); PARTIAL THROMBOPLASTIN TIME 27.8 SEC (26.3-35.5)
[2020-06-11 19:55] LABS: APPEARANCE,URINE Clear (CLEAR); BILIRUBIN,URINE Negative (NEGATIVE); COLOR,URINE Yellow (YELLOW); GLUCOSE, URINE (UA) Negative (NEGATIVE); KETONES,URINE Negative (NEGATIVE); LEUKOCYTE ESTERASE ,URINE Negative (NEGATIVE); NITRATE,URINE Negative (NEGATIVE); OCCULT BLOOD,URINE Negative (NEGATIVE); PROTEIN,URINE POS 1+ mg/dL (NEGATIVE); UROBILINOGEN,URINE 0.2 mg/dL (0.2-1.0)
[2020-06-11] MEDS ORDERED: DILTIAZEM HCL 5 MG/ML 10 ML VIAL IV ONE (20:12)
[2020-06-11] MEDS ORDERED: FUROSEMIDE 10 MG/ML 4ML VIAL ONE (20:12)
[2020-06-11 20:16] LABS: BACTERIA,URINE Few /HPF (None Seen); MUCUS,URINE Few LPF (None Seen); SQUAMOUS EPITHELIAL CELL,UR 0-2 /HPF (0-2)
[2020-06-12] MEDS ORDERED: FUROSEMIDE 10 MG/ML 4ML VIAL ONE (05:05)
[2020-06-12 08:56] VITALS: BP 157/94
[2020-06-12] MEDS ORDERED: DILTIAZEM HCL 5 MG/ML 10 ML VIAL IV ONE (09:12)
[2020-06-12] MEDS ORDERED: METOPROLOL TARTRATE 25 MG TAB PO SCH (09:30)
[2020-06-12 09:45] VITALS: BP 130/57
[2020-06-12] MEDS ORDERED: CA C1TAB74 PO (11:22)
[2020-06-12] MEDS ORDERED: FOLI0.8T22 PO (11:23)
[2020-06-12] MEDS ORDERED: BICA50TA49 PO (11:26)
[2020-06-12 12:01] VITALS: BP 114/63
[2020-06-12 12:07] LABS: HEMOGLOBIN A1C 6.2 % (4.0-6.0)
[2020-06-12 15:46] VITALS: BP 135/77
[2020-06-12] MEDS ORDERED: METOPROLOL TARTRATE 50 MG TAB ONE (15:58)
[2020-06-12] MEDS ORDERED: FUROSEMIDE 10 MG/ML 2ML VIAL ONE (15:59)
[2020-06-12] MEDS: METOPROLOL TARTRATE 25 MG TAB PO SCH (17:55)
[2020-06-12] MEDS ORDERED: METOPROLOL SUCCINATE 50 MG TAB.SR.24H PO SCH (18:00)
[2020-06-12] MEDS ORDERED: FUROSEMIDE 10 MG/ML 2ML VIAL IV SCH (18:00)
[2020-06-12] MEDS: FAMOTIDINE/PF 20 MG/2 ML VIAL IV SCH (18:08)
[2020-06-12] MEDS: APIXABAN 2.5 MG TABLET PO SCH ×2 (18:08→19:12)
[2020-06-12] MEDS ORDERED: METOPROLOL TARTRATE 1 MG/ML 5ML VIAL IV PRN (18:15)
[2020-06-12 19:10] VITALS: BP 121/62
[2020-06-12] MEDS: INSULIN LISPRO 100 UNIT/ML 3ML SQ SCH (20:44)
[2020-06-12] MEDS ORDERED: HYDROMORPHONE HCL 2 MG/ML VIAL ONE (20:59)
[2020-06-12] MEDS: HYDROMORPHONE 1 MG/1 ML AMP IVP PRN (22:52)
[2020-06-12 23:20] VITALS: BP 94/72
[2020-06-13] VITALS (10 sets, daily range): BP systolic 114–152; BP diastolic 57–78
[2020-06-13] MEDS: HYDROMORPHONE 1 MG/1 ML AMP IVP PRN ×3 (00:32→04:38)
[2020-06-13 06:02] LABS: BASOPHILS % (AUTO) 0.8 % (0.0-5.0); EOSINOPHILS % (AUTO) 1.3 % (0.0-8.0); HEMATOCRIT 44.2 % (42-54); LYMPHOCYTES % (AUTO) 17.2 % (21.0-51.0); MEAN CORPUSCULAR HEMOGLOBIN 31.2 pg (27.0-33.0); MEAN CORPUSCULAR HGB CONC 31.2 g/dL (32.0-36.0); MONOCYTES % (AUTO) 11.2 % (3.0-13.0); NEUTROPHILS % (AUTO) 69.2 % (40.0-77.0); PLATELET COUNT (AUTO) 149 K/uL (130-400); RED BLOOD CELL COUNT(AUTO) 4.42 MIL/uL (4.50-6.20); RED CELL DISTRIBUTION WIDTH 14.6 % (11.0-15.5); WHITE BLOOD COUNT (AUTO) 9.2 K/uL (4.8-10.8)
[2020-06-13 06:43] LABS: CREATININE 2.6 mg/dL (0.5-1.5); MAGNESIUM 2.1 mg/dL (1.80-2.40); PHOSPHORUS 4.1 mg/dL (2.5-4.9); POTASSIUM 4.3 mmol/L (3.5-5.1); THYROID STIMULATING HORMONE 1.51 uIU/mL (0.36-3.74); URIC ACID 9.4 mg/dL (2.6-7.2)
[2020-06-13] MEDS: APIXABAN 2.5 MG TABLET PO SCH ×2 (10:24→20:06)
[2020-06-13] MEDS: METOPROLOL TARTRATE 25 MG TAB PO SCH (10:25)
[2020-06-13] MEDS: FAMOTIDINE/PF 20 MG/2 ML VIAL IV SCH (10:25)
[2020-06-13] MEDS: Vitamin B Complex/Vit C/Folic Acid PO SCH (10:25)
[2020-06-13] MEDS: INSULIN LISPRO 100 UNIT/ML 3ML SQ SCH (16:30)
[2020-06-13] MEDS: METOPROLOL TARTRATE 50 MG TAB PO SCH (20:06)
[2020-06-14 00:01] VITALS: BP 108/55
[2020-06-14 04:14] VITALS: BP 112/68
[2020-06-14] MEDS: INSULIN LISPRO 100 UNIT/ML 3ML SQ SCH ×2 (05:10→16:30)
[2020-06-14 05:34] LABS: HEMATOCRIT 43.1 % (42-54); MEAN CORPUSCULAR HGB CONC 31.3 g/dL (32.0-36.0); MEAN CORPUSCULAR VOLUME 98.9 fL (79-99); PLATELET COUNT (AUTO) 148 K/uL (130-400); RED BLOOD CELL COUNT(AUTO) 4.36 MIL/uL (4.50-6.20); RED CELL DISTRIBUTION WIDTH 14.4 % (11.0-15.5); WHITE BLOOD COUNT (AUTO) 8.5 K/uL (4.8-10.8)
[2020-06-14 05:53] LABS: EOSINOPHILS % (MANUAL) 4 % (1-6); LYMPHOCYTES % (MANUAL) 30 % (22-44); MAN.DIFF COMMENT-IMPRESSION MANUAL DIFFERENTIAL; MONOCYTES % (MANUAL) 13 % (2-9); SEGMENTED NEUTROPHILS % 53 % (40-70)
[2020-06-14 05:58] LABS: CREATININE 2.5 mg/dL (0.5-1.5); POTASSIUM 4.6 mmol/L (3.5-5.1)
[2020-06-14 07:30] VITALS: BP 161/98
[2020-06-14] MEDS: Vitamin B Complex/Vit C/Folic Acid PO SCH (09:06)
[2020-06-14] MEDS: FAMOTIDINE/PF 20 MG/2 ML VIAL IV SCH (09:07)
[2020-06-14] MEDS: APIXABAN 2.5 MG TABLET PO SCH ×2 (09:07→20:24)
[2020-06-14] MEDS: METOPROLOL TARTRATE 50 MG TAB PO SCH ×2 (09:07→20:21)
[2020-06-14 11:00] VITALS: BP 150/76
[2020-06-14 16:00] VITALS: BP 149/82
[2020-06-14 20:55] VITALS: BP 149/65
[2020-06-14] MEDS ORDERED: FUROSEMIDE 10 MG/ML 2ML VIAL IV SCH (23:15)
[2020-06-14] MEDS: DILTIAZEM HCL 5 MG/ML 10 ML VIAL IV SCH (23:39)
[2020-06-15 00:01] VITALS: BP 121/59
[2020-06-15] MEDS: INSULIN LISPRO 100 UNIT/ML 3ML SQ SCH ×2 (04:53→18:16)
[2020-06-15] MEDS: FUROSEMIDE 10 MG/ML 2ML VIAL IV SCH ×2 (05:34→23:59)
[2020-06-15 06:24] LABS: ALBUMIN 2.9 g/dL (3.5-5.0); BILIRUBIN,TOTAL 0.6 mg/dL (0.2-1.0); CREATININE 2.4 mg/dL (0.5-1.5); MAGNESIUM 2.2 mg/dL (1.80-2.40)
[2020-06-15 08:00] VITALS: BP 140/78
[2020-06-15] MEDS: FAMOTIDINE/PF 20 MG/2 ML VIAL IV SCH (08:31)
[2020-06-15] MEDS: Vitamin B Complex/Vit C/Folic Acid PO SCH (08:31)
[2020-06-15] MEDS: APIXABAN 2.5 MG TABLET PO SCH ×2 (08:32→20:55)
[2020-06-15] MEDS: METOPROLOL TARTRATE 50 MG TAB PO SCH ×2 (08:32→20:55)
[2020-06-15] MEDS: FUROSEMIDE 20 MG TABLET PO SCH ×2 (08:32→18:16)
[2020-06-15 11:23] VITALS: BP 117/65
[2020-06-15 16:00] VITALS: BP 119/74
[2020-06-15 19:21] LABS: APPEARANCE,URINE Clear (CLEAR); BILIRUBIN,URINE Negative (NEGATIVE); COLOR,URINE Yellow (YELLOW); GLUCOSE, URINE (UA) Negative (NEGATIVE); KETONES,URINE Negative (NEGATIVE); LEUKOCYTE ESTERASE ,URINE Negative (NEGATIVE); NITRATE,URINE Negative (NEGATIVE); OCCULT BLOOD,URINE Negative (NEGATIVE); PROTEIN,URINE Negative (NEGATIVE); UROBILINOGEN,URINE 0.2 mg/dL (0.2-1.0)
[2020-06-15 19:46] VITALS: BP 141/60
[2020-06-15] MEDS: DILTIAZEM HCL 5 MG/ML 10 ML VIAL IV SCH (23:30)
[2020-06-15 23:58] VITALS: BP 98/57
[2020-06-16 03:30] VITALS: BP 127/69
[2020-06-16 06:01] LABS: BASOPHILS % (AUTO) 0.8 % (0.0-5.0); EOSINOPHILS % (AUTO) 1.7 % (0.0-8.0); HEMATOCRIT 40.9 % (42-54); LYMPHOCYTES % (AUTO) 20.3 % (21.0-51.0); MEAN CORPUSCULAR HEMOGLOBIN 31.2 pg (27.0-33.0); MEAN CORPUSCULAR VOLUME 97.4 fL (79-99); MONOCYTES % (AUTO) 12.5 % (3.0-13.0); NEUTROPHILS % (AUTO) 64.4 % (40.0-77.0); PLATELET COUNT (AUTO) 142 K/uL (130-400); RED CELL DISTRIBUTION WIDTH 14.1 % (11.0-15.5); WHITE BLOOD COUNT (AUTO) 7.8 K/uL (4.8-10.8)
[2020-06-16 06:08] LABS: CREATININE 2.4 mg/dL (0.5-1.5); POTASSIUM 3.8 mmol/L (3.5-5.1)
[2020-06-16] MEDS: INSULIN LISPRO 100 UNIT/ML 3ML SQ SCH ×2 (06:17→16:30)
[2020-06-16 08:27] VITALS: BP 136/71
[2020-06-16] MEDS ORDERED: METOPROLOL TARTRATE 25 MG TAB PO SCH (09:00)
[2020-06-16] MEDS: FUROSEMIDE 20 MG TABLET PO SCH ×2 (09:33→17:00)
[2020-06-16] MEDS: APIXABAN 2.5 MG TABLET PO SCH (09:33)
[2020-06-16] MEDS: Vitamin B Complex/Vit C/Folic Acid PO SCH (09:33)
[2020-06-16] MEDS: FAMOTIDINE/PF 20 MG/2 ML VIAL IV SCH (09:33)
[2020-06-16] MEDS: METOPROLOL TARTRATE 50 MG TAB PO SCH (09:33)
[2020-06-16 11:33] VITALS: BP 128/73
[2020-06-16 15:59] VITALS: BP 154/75
[2020-06-16] MEDS ORDERED: METO75TA PO (17:19)
[2020-06-16] MEDS ORDERED: FURO20TA6 PO (17:20)
== END 2020-06-16 17:45 | disposition home or self-care (01) | DRG 291 ==
LOC: EDH 18:12 → OBSVTOIN 21:45 → EDHIP 21:45 → UNDOADMOB 21:45 → INTOOBSV 21:45 → EDHIP 06-12 08:34 → 4BH 06-12 08:34
PROVIDERS: ADMIT Internal Medicine; ATTEND Internal Medicine
DX: I13.0 Hypertensive heart and chronic kidney disease with heart failure and stage 1 through stage 4 chronic kidney disease, or unspecified chronic kidney disease (principal); I50.33 Acute on chronic diastolic (congestive) heart failure; I48.92 Unspecified atrial flutter; N17.9 Acute kidney failure, unspecified; I47.1 Supraventricular tachycardia; N18.4 Chronic kidney disease, stage 4 (severe); I48.91 Unspecified atrial fibrillation; I25.5 Ischemic cardiomyopathy; I25.10 Atherosclerotic heart disease of native coronary artery without angina pectoris; E78.5 Hyperlipidemia, unspecified; J44.9 Chronic obstructive pulmonary disease, unspecified; I49.3 Ventricular premature depolarization; E11.51 Type 2 diabetes mellitus with diabetic peripheral angiopathy without gangrene; N40.0 Benign prostatic hyperplasia without lower urinary tract symptoms; E87.70 Fluid overload, unspecified; K59.00 Constipation, unspecified; D64.9 Anemia, unspecified; I35.0 Nonrheumatic aortic (valve) stenosis; E11.22 Type 2 diabetes mellitus with diabetic chronic kidney disease; R54 Age-related physical debility; Z20.828 Contact with and (suspected) exposure to other viral communicable diseases; R62.7 Adult failure to thrive; Z68.22 Body mass index [BMI] 22.0-22.9, adult; Z71.3 Dietary counseling and surveillance; Z95.3 Presence of xenogenic heart valve; Z95.1 Presence of aortocoronary bypass graft; Z86.718 Personal history of other venous thrombosis and embolism; Z85.46 Personal history of malignant neoplasm of prostate; Z86.79 Personal history of other diseases of the circulatory system; Z79.01 Long term (current) use of anticoagulants; Z79.899 Other long term (current) drug therapy; Z88.8 Allergy status to other drugs, medicaments and biological substances
CPT/HCPCS: 36415; 71045; 74176; 80048; 80053; 81001; 81003; 82550; 82948; 83036; 83605; 83690; 83735; 83880; 84100; 84145; 84443; 84484; 84550; 85025; 85610; 85730; 87040; 87426; 93005; 93306; 93356; 94760; 97039; G0378; J1170; J1940; J3490; U0003

== ENCOUNTER 2020-08-22 19:55 | Inpatient (IN) | payer MEDICARE ==
[~2020-08-22] VITALS: Ht 193 cm; Wt 87.6 kg
[~2020-08-22 19:55] MED LIST changes: -ASPI-1197 PO; +BICA50TA49 PO; +CA C1TAB74 PO; -CHOL200074 PO; -FLUT1AER IH; +FURO20TA6 PO; -FURO40TA5 PO; -ISOS20TA7 PO; +ISOS20TA85 PO; -METO25TA6 PO; +METO75TA PO; -SIMV40TA59 PO; -WARF7.5T49 PO
[2020-08-22 20:29] LABS: BASOPHILS % (AUTO) 0.4 % (0.0-5.0); EOSINOPHILS % (AUTO) 0.5 % (0.0-8.0); HEMATOCRIT 44.3 % (42-54); LYMPHOCYTES % (AUTO) 10.8 % (21.0-51.0); MEAN CORPUSCULAR HEMOGLOBIN 29.9 pg (27.0-33.0); MEAN CORPUSCULAR HGB CONC 30.9 g/dL (32.0-36.0); MEAN CORPUSCULAR VOLUME 96.7 fL (79-99); MONOCYTES % (AUTO) 11.4 % (3.0-13.0); NEUTROPHILS % (AUTO) 76.5 % (40.0-77.0); PLATELET COUNT (AUTO) 75 K/uL (130-400); RED BLOOD CELL COUNT(AUTO) 4.58 MIL/uL (4.50-6.20); WHITE BLOOD COUNT (AUTO) 9.9 K/uL (4.8-10.8)
[2020-08-22 20:37] LABS: CREATININE 2.1 mg/dL (0.5-1.5); POTASSIUM 4.7 mmol/L (3.5-5.1)
[2020-08-22 20:39] LABS: INR 1.37 (0.85-1.15); PROTHROMBIN TIME 14.2 SEC (9.6-11.6)
[2020-08-22 20:40] LABS: PARTIAL THROMBOPLASTIN TIME 27.4 SEC (26.3-35.5)
[2020-08-22 20:41] LABS: BILIRUBIN,TOTAL 0.9 mg/dL (0.2-1.0); TOTAL PROTEIN, SERUM 7.1 g/dL (6.0-8.3)
[2020-08-22 20:56] LABS: B-TYPE NATRIURETIC PEPTIDE 4790 pg/mL (0-100)
[2020-08-22] MEDS ORDERED: ONDANSETRON ODT 4MG TAB PO PRN (23:45)
[2020-08-22] MEDS ORDERED: ACETAMINOPHEN 325 MG TAB PO PRN (23:45)
[2020-08-23 04:45] LABS: BASOPHILS % (AUTO) 0.5 % (0.0-5.0); EOSINOPHILS % (AUTO) 0.7 % (0.0-8.0); HEMATOCRIT 44.3 % (42-54); LYMPHOCYTES % (AUTO) 20.6 % (21.0-51.0); MEAN CORPUSCULAR HEMOGLOBIN 29.3 pg (27.0-33.0); MEAN CORPUSCULAR HGB CONC 30.2 g/dL (32.0-36.0); MEAN CORPUSCULAR VOLUME 96.7 fL (79-99); MONOCYTES % (AUTO) 13.4 % (3.0-13.0); NEUTROPHILS % (AUTO) 64.5 % (40.0-77.0); RED BLOOD CELL COUNT(AUTO) 4.58 MIL/uL (4.50-6.20); RED CELL DISTRIBUTION WIDTH 15.9 % (11.0-15.5); WHITE BLOOD COUNT (AUTO) 8.6 K/uL (4.8-10.8)
[2020-08-23 04:53] LABS: CREATININE 2.2 mg/dL (0.5-1.5); MAGNESIUM 2.2 mg/dL (1.80-2.40); POTASSIUM 4.3 mmol/L (3.5-5.1)
[2020-08-23 05:38] LABS: PLATELET COUNT (AUTO) 79 K/uL (130-400)
[2020-08-23] MEDS ORDERED: BICA50TA7 PO (10:16)
[2020-08-23] MEDS ORDERED: WARF2.5T85 PO (10:16)
[2020-08-23] MEDS ORDERED: ISOS20TA85 PO (10:16)
[2020-08-23] MEDS ORDERED: TERB250T89 PO (10:16)
[2020-08-23] MEDS ORDERED: MV-M1TAB20 PO (10:16)
[2020-08-23] MEDS ORDERED: FURO40TA5 PO (10:16)
[2020-08-23] MEDS ORDERED: vitamin d3 PO (10:18)
[2020-08-23] MEDS ORDERED: METOPROLOL TARTRATE 25 MG TAB ONE ×2 (12:30→22:00)
[2020-08-23] MEDS ORDERED: FUROSEMIDE 40 MG TABLET ONE (12:30)
[2020-08-23] MEDS ORDERED: METOPROLOL TARTRATE 50 MG TAB ONE ×2 (12:30→22:00)
[2020-08-23] MEDS ORDERED: FUROSEMIDE 40MG VIAL IV SCH (13:00)
[2020-08-23] MEDS ORDERED: FUROSEMIDE 40MG VIAL ONE (14:12)
[2020-08-23] MEDS ORDERED: Vitamin B Complex/Vit C/Folic Acid ONE (14:16)
[2020-08-23 15:03] LABS: APPEARANCE,URINE Clear (CLEAR); BILIRUBIN,URINE Negative (NEGATIVE); COLOR,URINE Yellow (YELLOW); GLUCOSE, URINE (UA) Negative (NEGATIVE); KETONES,URINE Negative (NEGATIVE); LEUKOCYTE ESTERASE ,URINE Negative (NEGATIVE); NITRATE,URINE Negative (NEGATIVE); OCCULT BLOOD,URINE Negative (NEGATIVE); PROTEIN,URINE Trace mg/dL (NEGATIVE)
[2020-08-23 15:05] LABS: BACTERIA,URINE Rare /HPF (None Seen); MUCUS,URINE Rare LPF (None Seen); RBC,URINE 0-1 /HPF (0-1); WBC,URINE 0-1 /HPF (0-1)
[2020-08-23 15:06] LABS: SQUAMOUS EPITHELIAL CELL,UR Few /HPF (0-2)
[2020-08-23] MEDS: WARFARIN SODIUM 2.5 MG TAB PO SCH (21:00)
[2020-08-23] MEDS: TERBINAFINE 250 MG PO SCH (21:00)
[2020-08-23] MEDS: METOPROLOL TARTRATE 50 MG TAB PO SCH (21:00)
[2020-08-24 00:26] LABS: ABG BASE EXCESS -1.9 mmol/L (-2.0-3.0); ABG HCO3 23.2 mmol/L (21.0-28.0); ABG OXYGEN SATURATION 97.9 % (95.0-99.0); ABG PCO2 41 mmHg (35-48)
[2020-08-24 03:50] VITALS: BP 122/53
[2020-08-24 07:25] LABS: HEMATOCRIT 43.9 % (42-54); MEAN CORPUSCULAR HEMOGLOBIN 29.4 pg (27.0-33.0); RED BLOOD CELL COUNT(AUTO) 4.62 MIL/uL (4.50-6.20); RED CELL DISTRIBUTION WIDTH 15.7 % (11.0-15.5); WHITE BLOOD COUNT (AUTO) 8.3 K/uL (4.8-10.8)
[2020-08-24 07:37] LABS: ALBUMIN 2.8 g/dL (3.5-5.0); CREATININE 2.6 mg/dL (0.5-1.5); PHOSPHORUS 4.2 mg/dL (2.5-4.9); POTASSIUM 4.5 mmol/L (3.5-5.1); TOTAL PROTEIN, SERUM 6.4 g/dL (6.0-8.3); URIC ACID 11.8 mg/dL (2.6-7.2)
[2020-08-24 08:08] VITALS: BP 127/70
[2020-08-24] MEDS: Vitamin B Complex/Vit C/Folic Acid PO SCH (08:20)
[2020-08-24] MEDS: METOPROLOL TARTRATE 50 MG TAB PO SCH ×2 (08:21→20:23)
[2020-08-24] MEDS: FUROSEMIDE 40 MG TABLET PO SCH (08:21)
[2020-08-24] MEDS: ISOSORBIDE MONONITRATE 20 MG TABLET PO SCH (08:21)
[2020-08-24] MEDS: CASODEX 50 MG PO SCH (08:27)
[2020-08-24] MEDS: **HM** VIT D3 1000 UNITS PO SCH (08:27)
[2020-08-24] MEDS ORDERED: BICALUTAMIDE 50 MG PO SCH (09:00)
[2020-08-24] MEDS ORDERED: ENOXAPARIN SODIUM 30 MG/0.3 ML SQ SCH ×2 (09:00→16:30)
[2020-08-24 11:43] VITALS: BP 115/75
[2020-08-24 16:16] VITALS: BP 141/90
[2020-08-24 19:52] VITALS: BP 100/60
[2020-08-24] MEDS: WARFARIN SODIUM 2.5 MG TAB PO SCH (20:23)
[2020-08-24] MEDS: DOXYCYCLINE HYCLATE 100 MG TABLET PO SCH (20:23)
[2020-08-24] MEDS: TERBINAFINE 250 MG PO SCH (21:00)
[2020-08-24 22:12] LABS: INR 1.51 (0.85-1.15); PROTHROMBIN TIME 15.6 SEC (9.6-11.6)
[2020-08-24 23:16] VITALS: BP 90/53
[2020-08-25 04:00] VITALS: BP 104/61
[2020-08-25 06:04] LABS: MEAN CORPUSCULAR HEMOGLOBIN 29.1 pg (27.0-33.0); MEAN CORPUSCULAR HGB CONC 30.7 g/dL (32.0-36.0); MEAN CORPUSCULAR VOLUME 94.8 fL (79-99); RED BLOOD CELL COUNT(AUTO) 4.43 MIL/uL (4.50-6.20); RED CELL DISTRIBUTION WIDTH 15.5 % (11.0-15.5); WHITE BLOOD COUNT (AUTO) 8.7 K/uL (4.8-10.8)
[2020-08-25 06:41] LABS: CREATININE 2.8 mg/dL (0.5-1.5); THYROID STIMULATING HORMONE 1.7 uIU/mL (0.36-3.74)
[2020-08-25 08:07] VITALS: BP 110/56
[2020-08-25] MEDS: METOPROLOL TARTRATE 50 MG TAB PO SCH ×2 (08:45→21:08)
[2020-08-25] MEDS: POLYETHYLENE GLYCOL 3350 17 GM POWD.PACK PO SCH (08:45)
[2020-08-25] MEDS: ISOSORBIDE MONONITRATE 20 MG TABLET PO SCH (08:46)
[2020-08-25] MEDS: DOXYCYCLINE HYCLATE 100 MG TABLET PO SCH ×2 (08:46→21:07)
[2020-08-25] MEDS: Vitamin B Complex/Vit C/Folic Acid PO SCH (08:46)
[2020-08-25] MEDS: FUROSEMIDE 40 MG TABLET PO SCH ×2 (08:46→16:08)
[2020-08-25] MEDS: **HM** VIT D3 1000 UNITS PO SCH (08:54)
[2020-08-25] MEDS: CASODEX 50 MG PO SCH (08:54)
[2020-08-25] MEDS ORDERED: ENOXAPARIN SODIUM 80 MG/0.8 ML SQ SCH (09:00)
[2020-08-25 11:36] VITALS: BP 118/72
[2020-08-25 16:40] VITALS: BP 113/69
[2020-08-25 20:30] VITALS: BP 124/79
[2020-08-25] MEDS: TERBINAFINE 250 MG PO SCH (21:00)
[2020-08-25] MEDS ORDERED: APIXABAN 2.5 MG TABLET PO SCH (21:00)
[2020-08-25 23:23] VITALS: BP 96/58
[2020-08-26 03:35] VITALS: BP 116/66
[2020-08-26 04:15] LABS: BASOPHILS % (AUTO) 0.6 % (0.0-5.0); HEMATOCRIT 41.2 % (42-54); LYMPHOCYTES % (AUTO) 17.9 % (21.0-51.0); MEAN CORPUSCULAR HEMOGLOBIN 29.3 pg (27.0-33.0); MEAN CORPUSCULAR HGB CONC 30.8 g/dL (32.0-36.0); MEAN CORPUSCULAR VOLUME 94.9 fL (79-99); NEUTROPHILS % (AUTO) 62.2 % (40.0-77.0); PLATELET COUNT (AUTO) 25 K/uL (130-400); RED BLOOD CELL COUNT(AUTO) 4.34 MIL/uL (4.50-6.20); RED CELL DISTRIBUTION WIDTH 15.7 % (11.0-15.5); WHITE BLOOD COUNT (AUTO) 8.8 K/uL (4.8-10.8)
[2020-08-26 04:30] LABS: CREATININE 2.7 mg/dL (0.5-1.5)
[2020-08-26 05:00] LABS: B-TYPE NATRIURETIC PEPTIDE 4600 pg/mL (0-100)
[2020-08-26 07:36] VITALS: BP 94/52
[2020-08-26] MEDS: METOPROLOL TARTRATE 50 MG TAB PO SCH ×2 (09:00→21:42)
[2020-08-26] MEDS: ISOSORBIDE MONONITRATE 20 MG TABLET PO SCH (09:00)
[2020-08-26] MEDS: **HM** VIT D3 1000 UNITS PO SCH (09:00)
[2020-08-26] MEDS: CASODEX 50 MG PO SCH (09:00)
[2020-08-26] MEDS: FUROSEMIDE 40 MG TABLET PO SCH ×2 (09:52→16:35)
[2020-08-26] MEDS: POLYETHYLENE GLYCOL 3350 17 GM POWD.PACK PO SCH (09:52)
[2020-08-26] MEDS: DOXYCYCLINE HYCLATE 100 MG TABLET PO SCH ×2 (09:52→21:42)
[2020-08-26] MEDS: CYANOCOBALAMIN (VITAMIN B-12) 1,000 MCG TABLET PO SCH (09:52)
[2020-08-26] MEDS: FOLIC ACID 1 MG TABLET PO SCH (09:52)
[2020-08-26] MEDS: Vitamin B Complex/Vit C/Folic Acid PO SCH (09:52)
[2020-08-26 11:08] VITALS: BP 112/72
[2020-08-26 16:34] VITALS: BP 117/57
[2020-08-26] MEDS: FONDAPARINUX SODIUM 2.5 MG/0.5 ML SQ SCH (16:36)
[2020-08-26 20:00] VITALS: BP 116/73
[2020-08-26] MEDS: TERBINAFINE 250 MG PO SCH (21:00)
[2020-08-26] MEDS ORDERED: GLUCAGON 1MG KIT 1 MG ML IM PRN (21:45)
[2020-08-26] MEDS ORDERED: DEXTROSE 50%-WATER 50 ML DISP.SYRIN IV PRN (21:45)
[2020-08-27] VITALS (7 sets, daily range): BP systolic 90–136; BP diastolic 53–73
[2020-08-27] MEDS: ALPRAZOLAM 0.5 MG TABLET PO SCH (01:30)
[2020-08-27] MEDS ORDERED: ALPRAZOLAM 0.5 MG TABLET ONE (01:57)
[2020-08-27 04:18] LABS: HEMATOCRIT 40.4 % (42-54); MEAN CORPUSCULAR HEMOGLOBIN 28.6 pg (27.0-33.0); MEAN CORPUSCULAR HGB CONC 30.4 g/dL (32.0-36.0); PLATELET COUNT (AUTO) 132 K/uL (130-400); RED CELL DISTRIBUTION WIDTH 15.7 % (11.0-15.5); WHITE BLOOD COUNT (AUTO) 8.6 K/uL (4.8-10.8)
[2020-08-27 04:33] LABS: CREATININE 2.7 mg/dL (0.5-1.5); POTASSIUM 3.6 mmol/L (3.5-5.1)
[2020-08-27 05:25] LABS: EOSINOPHILS % (MANUAL) 2 % (1-6); LYMPHOCYTES % (MANUAL) 16 % (22-44); MONOCYTES % (MANUAL) 8 % (2-9); REACTIVE LYMPHOCYTES 3 % (0-0); SEGMENTED NEUTROPHILS % 71 % (40-70)
[2020-08-27 05:32] LABS: MAN.DIFF COMMENT-IMPRESSION MANUAL DIFFERENTIAL; PLATELET MORPHOLOGY COMMENT ADEQUATE
[2020-08-27] MEDS: INSULIN HUMULIN R 100 UNIT/ML 3ML SQ SCH ×4 (06:30→21:00)
[2020-08-27] MEDS: ISOSORBIDE MONONITRATE 20 MG TABLET PO SCH ×2 (09:00→10:14)
[2020-08-27] MEDS: **HM** VIT D3 1000 UNITS PO SCH (09:00)
[2020-08-27] MEDS: CASODEX 50 MG PO SCH (09:00)
[2020-08-27] MEDS: CYANOCOBALAMIN (VITAMIN B-12) 1,000 MCG TABLET PO SCH (10:10)
[2020-08-27] MEDS: FOLIC ACID 1 MG TABLET PO SCH (10:10)
[2020-08-27] MEDS: POLYETHYLENE GLYCOL 3350 17 GM POWD.PACK PO SCH (10:10)
[2020-08-27] MEDS: Vitamin B Complex/Vit C/Folic Acid PO SCH (10:10)
[2020-08-27] MEDS: FONDAPARINUX SODIUM 2.5 MG/0.5 ML SQ SCH (10:11)
[2020-08-27] MEDS: METOPROLOL TARTRATE 50 MG TAB PO SCH ×2 (10:11→21:40)
[2020-08-27] MEDS: FUROSEMIDE 40 MG TABLET PO SCH ×2 (10:11→16:07)
[2020-08-27] MEDS: DOXYCYCLINE HYCLATE 100 MG TABLET PO SCH ×2 (10:11→21:40)
[2020-08-27] MEDS: TERBINAFINE 250 MG PO SCH (21:00)
[2020-08-28] MEDS: ALPRAZOLAM 0.5 MG TABLET PO SCH ×2 (00:04→21:00)
[2020-08-28 06:25] LABS: MEAN CORPUSCULAR HEMOGLOBIN 29.1 pg (27.0-33.0); PLATELET COUNT (AUTO) 84 K/uL (130-400); RED BLOOD CELL COUNT(AUTO) 4.36 MIL/uL (4.50-6.20); RED CELL DISTRIBUTION WIDTH 15.7 % (11.0-15.5); WHITE BLOOD COUNT (AUTO) 7.5 K/uL (4.8-10.8)
[2020-08-28 06:31] LABS: CREATININE 2.5 mg/dL (0.5-1.5); POTASSIUM 3.5 mmol/L (3.5-5.1)
[2020-08-28 07:17] LABS: BASOPHILS % (MANUAL) 1 % (0-2); LYMPHOCYTES % (MANUAL) 16 % (22-44); MAN.DIFF COMMENT-IMPRESSION MANUAL DIFFERENTIAL; MONOCYTES % (MANUAL) 4 % (2-9); SEGMENTED NEUTROPHILS % 79 % (40-70)
[2020-08-28] MEDS: INSULIN HUMULIN R 100 UNIT/ML 3ML SQ SCH ×4 (07:30→21:00)
[2020-08-28 08:00] VITALS: BP 114/67
[2020-08-28] MEDS: CASODEX 50 MG PO SCH (09:00)
[2020-08-28] MEDS: **HM** VIT D3 1000 UNITS PO SCH (09:00)
[2020-08-28] MEDS: DOXYCYCLINE HYCLATE 100 MG TABLET PO SCH ×2 (09:07→21:08)
[2020-08-28] MEDS: CYANOCOBALAMIN (VITAMIN B-12) 1,000 MCG TABLET PO SCH (09:07)
[2020-08-28] MEDS: Vitamin B Complex/Vit C/Folic Acid PO SCH (09:07)
[2020-08-28] MEDS: FOLIC ACID 1 MG TABLET PO SCH (09:07)
[2020-08-28] MEDS: POLYETHYLENE GLYCOL 3350 17 GM POWD.PACK PO SCH (09:07)
[2020-08-28] MEDS: FONDAPARINUX SODIUM 2.5 MG/0.5 ML SQ SCH (09:08)
[2020-08-28] MEDS: METOPROLOL TARTRATE 50 MG TAB PO SCH ×2 (09:08→21:08)
[2020-08-28] MEDS: ISOSORBIDE MONONITRATE 20 MG TABLET PO SCH (09:08)
[2020-08-28] MEDS: FUROSEMIDE 40 MG TABLET PO SCH ×2 (09:09→18:50)
[2020-08-28 12:07] VITALS: BP 127/74
[2020-08-28 16:00] VITALS: BP 137/66
[2020-08-28 20:00] VITALS: BP 136/82
[2020-08-28] MEDS: TERBINAFINE 250 MG PO SCH (21:00)
[2020-08-29] VITALS: BP 114/67
[2020-08-29] MEDS: ALPRAZOLAM 0.5 MG TABLET PO SCH ×3 (01:02→22:33)
[2020-08-29 04:00] VITALS: BP 110/64
[2020-08-29 05:55] LABS: BASOPHILS % (AUTO) 0.6 % (0.0-5.0); HEMATOCRIT 39.7 % (42-54); LYMPHOCYTES % (AUTO) 18.1 % (21.0-51.0); MEAN CORPUSCULAR HEMOGLOBIN 28.9 pg (27.0-33.0); MEAN CORPUSCULAR VOLUME 93.4 fL (79-99); MONOCYTES % (AUTO) 13.6 % (3.0-13.0); NEUTROPHILS % (AUTO) 65.3 % (40.0-77.0); PLATELET COUNT (AUTO) 89 K/uL (130-400); RED BLOOD CELL COUNT(AUTO) 4.25 MIL/uL (4.50-6.20); RED CELL DISTRIBUTION WIDTH 15.7 % (11.0-15.5)
[2020-08-29 06:28] LABS: CREATININE 2.1 mg/dL (0.5-1.5); POTASSIUM 3.7 mmol/L (3.5-5.1)
[2020-08-29] MEDS: INSULIN HUMULIN R 100 UNIT/ML 3ML SQ SCH ×4 (06:59→21:00)
[2020-08-29 07:00] VITALS: BP 123/73
[2020-08-29] MEDS: CASODEX 50 MG PO SCH (09:00)
[2020-08-29] MEDS: **HM** VIT D3 1000 UNITS PO SCH (09:00)
[2020-08-29] MEDS: FOLIC ACID 1 MG TABLET PO SCH (11:22)
[2020-08-29] MEDS: DOXYCYCLINE HYCLATE 100 MG TABLET PO SCH ×2 (11:22→21:08)
[2020-08-29] MEDS: ISOSORBIDE MONONITRATE 20 MG TABLET PO SCH (11:22)
[2020-08-29] MEDS: POLYETHYLENE GLYCOL 3350 17 GM POWD.PACK PO SCH (11:23)
[2020-08-29] MEDS: FUROSEMIDE 40 MG TABLET PO SCH ×2 (11:23→16:48)
[2020-08-29] MEDS: FONDAPARINUX SODIUM 2.5 MG/0.5 ML SQ SCH (11:24)
[2020-08-29] MEDS: Vitamin B Complex/Vit C/Folic Acid PO SCH ×2 (11:24→11:27)
[2020-08-29] MEDS: METOPROLOL TARTRATE 50 MG TAB PO SCH ×2 (11:25→21:08)
[2020-08-29 16:00] VITALS: BP 100/58
[2020-08-29] MEDS: CYANOCOBALAMIN (VITAMIN B-12) 1,000 MCG TABLET PO SCH (16:48)
[2020-08-29 19:53] VITALS: BP 112/65
[2020-08-29] MEDS: TERBINAFINE 250 MG PO SCH (21:00)
[2020-08-29 23:39] VITALS: BP 115/62
[2020-08-30 03:46] VITALS: BP 120/71
[2020-08-30 04:39] LABS: MEAN CORPUSCULAR HEMOGLOBIN 28.8 pg (27.0-33.0); MEAN CORPUSCULAR HGB CONC 30.7 g/dL (32.0-36.0); MEAN CORPUSCULAR VOLUME 93.8 fL (79-99); PLATELET COUNT (AUTO) 100 K/uL (130-400); RED BLOOD CELL COUNT(AUTO) 4.48 MIL/uL (4.50-6.20); RED CELL DISTRIBUTION WIDTH 15.6 % (11.0-15.5); WHITE BLOOD COUNT (AUTO) 7.3 K/uL (4.8-10.8)
[2020-08-30 04:42] LABS: CREATININE 2.3 mg/dL (0.5-1.5); POTASSIUM 4.2 mmol/L (3.5-5.1)
[2020-08-30 04:58] LABS: LYMPHOCYTES % (MANUAL) 20 % (22-44); MAN.DIFF COMMENT-IMPRESSION MANUAL DIFFERENTIAL; MONOCYTES % (MANUAL) 6 % (2-9); SEGMENTED NEUTROPHILS % 74 % (40-70)
[2020-08-30] MEDS: INSULIN HUMULIN R 100 UNIT/ML 3ML SQ SCH ×2 (06:30→11:34)
[2020-08-30 08:14] VITALS: BP 131/60
[2020-08-30] MEDS ORDERED: APIXABAN 5 MG TABLET PO SCH (09:00)
[2020-08-30] MEDS ORDERED: HONEY 1 APPL/ML TUBE TP SCH (09:00)
[2020-08-30] MEDS: DOXYCYCLINE HYCLATE 100 MG TABLET PO SCH (09:21)
[2020-08-30] MEDS: FOLIC ACID 1 MG TABLET PO SCH (09:22)
[2020-08-30] MEDS: ISOSORBIDE MONONITRATE 20 MG TABLET PO SCH (09:23)
[2020-08-30] MEDS: FUROSEMIDE 40 MG TABLET PO SCH (09:24)
[2020-08-30] MEDS: POLYETHYLENE GLYCOL 3350 17 GM POWD.PACK PO SCH (09:25)
[2020-08-30] MEDS: METOPROLOL TARTRATE 50 MG TAB PO SCH (09:25)
[2020-08-30] MEDS: CYANOCOBALAMIN (VITAMIN B-12) 1,000 MCG TABLET PO SCH (09:25)
[2020-08-30] MEDS: Vitamin B Complex/Vit C/Folic Acid PO SCH (09:28)
[2020-08-30 11:30] VITALS: BP 128/64
== END 2020-08-30 15:25 | DRG 291 ==
LOC: EDH 19:55 → OBSVTOIN 22:53 → EDHIP 22:53 → 3CH 08-24 03:13
PROVIDERS: ADMIT Internal Medicine Infectious Disease; ATTEND Internal Medicine Infectious Disease
DX: I13.0 Hypertensive heart and chronic kidney disease with heart failure and stage 1 through stage 4 chronic kidney disease, or unspecified chronic kidney disease (principal); I50.43 Acute on chronic combined systolic (congestive) and diastolic (congestive) heart failure; J96.21 Acute and chronic respiratory failure with hypoxia; N17.9 Acute kidney failure, unspecified; N18.4 Chronic kidney disease, stage 4 (severe); D68.59 Other primary thrombophilia; I48.20 Chronic atrial fibrillation, unspecified; I48.92 Unspecified atrial flutter; I82.403 Acute embolism and thrombosis of unspecified deep veins of lower extremity, bilateral; L03.119 Cellulitis of unspecified part of limb; I25.5 Ischemic cardiomyopathy; Z20.822 Contact with and (suspected) exposure to COVID-19; D64.9 Anemia, unspecified; D75.82 Heparin induced thrombocytopenia (HIT); E11.22 Type 2 diabetes mellitus with diabetic chronic kidney disease; E11.51 Type 2 diabetes mellitus with diabetic peripheral angiopathy without gangrene; E11.621 Type 2 diabetes mellitus with foot ulcer; E11.622 Type 2 diabetes mellitus with other skin ulcer; E66.9 Obesity, unspecified; E78.5 Hyperlipidemia, unspecified; I08.0 Rheumatic disorders of both mitral and aortic valves; I25.10 Atherosclerotic heart disease of native coronary artery without angina pectoris; I71.4 Abdominal aortic aneurysm, without rupture; J44.9 Chronic obstructive pulmonary disease, unspecified; L97.519 Non-pressure chronic ulcer of other part of right foot with unspecified severity; L97.529 Non-pressure chronic ulcer of other part of left foot with unspecified severity; N40.0 Benign prostatic hyperplasia without lower urinary tract symptoms; R62.7 Adult failure to thrive; R53.81 Other malaise; W19.XXXA Unspecified fall, initial encounter; Y93.89 Activity, other specified; Y92.89 Other specified places as the place of occurrence of the external cause; Y99.8 Other external cause status; Z68.23 Body mass index [BMI] 23.0-23.9, adult; Z74.01 Bed confinement status; Z79.01 Long term (current) use of anticoagulants; Z79.899 Other long term (current) drug therapy; Z95.3 Presence of xenogenic heart valve; Z95.1 Presence of aortocoronary bypass graft; Z86.79 Personal history of other diseases of the circulatory system; Z86.718 Personal history of other venous thrombosis and embolism; Z85.46 Personal history of malignant neoplasm of prostate; Z88.8 Allergy status to other drugs, medicaments and biological substances; Z83.3 Family history of diabetes mellitus
CPT/HCPCS: 36415; 36600; 71045; 80048; 80053; 81001; 82550; 82803; 82948; 83735; 83880; 84100; 84145; 84443; 84484; 84550; 85025; 85027; 85378; 85610; 85730; 86022; 87426; 93005; 93925; 93970; 97039; G0378; J1650; J1652; J1940; U0003